=== PATIENT | male | born 1980 | race American Indian/Alaskan Native ===

== ENCOUNTER 2018-09-06 12:28 | Emergency (ER) | payer SELFPAY ==
--- NOTE | 2018-09-06 13:07 | Cat Scan Report ---
PROCEDURE: CT HEAD/BRAIN WO CON TECHNIQUE: CT examination of the head without IV contrast HISTORY: HX OF CVA 12 DAYS AGO, INCREASING NUMBNESS COMPARISONS: None FINDINGS: Slight scattered mucosal thickening ethmoid sinuses. Other included paranasal sinuses are clear as ar e the included mastoid air cells and middle ear cavities. No acute air-fluid level visualized in the included air-filled sinuses. Bone windows demonstrate no acute fracture. The brain is without mass, mass effect, hemorrhage, or acute infarct. There is no extra-axial intracranial bleed, brain bleed, or midline shift. The ventricles and sulci are age-appropriate. IMPRESSION: No acute CVA, intracranial bleed, or brain mass This document is electronically signed by Babar Hassan MD., September 06 2018 01:05:47 PM ET
[2018-09-06] MEDS ORDERED: SODIUM CHLORIDE FLUSH SYRINGE 10 ML INJ PRN (13:11)
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
[2018-09-06 13:24] LABS: Basophils % (Auto) 0.7 % (0.0-1.8); Eosinophils # (Auto) 0.1 K/mm3 (0.0-0.4); Eosinophils % (Auto) 2.3 % (0.0-4.3); Hemoglobin 14.5 gm/dl (11.8-15.2); Lymphocytes # (Auto) 2.9 K/mm3 (1.2-5.4); Lymphocytes % (Auto) 49.3 % (13.4-35.0); Mean Corpuscular HGB Conc 35 % (32-34); Mean Corpuscular Volume 89 fl (84-94); Monocytes # (Auto) 0.6 K/mm3 (0.0-0.8); Monocytes % (Auto) 9.4 % (0.0-7.3); Platelet Count 235 K/mm3 (140-440); Red Cell Distribution Width 12.9 % (13.2-15.2)
[2018-09-06 13:34] LABS: INR 0.95 (0.87-1.13)
[2018-09-06 13:35] LABS: Partial Thromboplastin Time 29.9 Sec. (24.2-36.6)
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
--- NOTE | 2018-09-06 14:01 | Cat Scan Report ---
PROCEDURE: CT CERVICAL SPINE WO CON TECHNIQUE: CT of the cervical spine performed. Axial images and coronal and sagittal reformatted july ges were obtained. HISTORY: cervical radiculopathy COMPARISON: None FINDINGS: There is no acute fracture identified. Vertebral body heights and alignment are maintained. At C5-6 there is mild narrowing of the intervertebral disc space. Mild posterior disc may cause minim al spinal stenosis. At C6-7 there is moderate narrowing of the disc space. There is prominent uncovertebral spurring bila terally causing moderate neural foraminal narrowing bilaterally. Posterior disc osteophyte complex ca uses mild spinal stenosis. At C7-T1 there is a narrowed intervertebral disc but grossly no spinal stenosis. IMPRESSION: Lower cervical degenerative disc disease. Most notable is C6-7 where uncovertebral spurr ing causes moderate bilateral neuroforaminal narrowing and posterior disc osteophyte complex causes m ild spinal stenosis. This document is electronically signed by Cleo Lagunas MD., September 06 2018 01:59:19 PM ET
[2018-09-06 14:05] LABS: BUN/Creatinine Ratio 12; Blood Urea Nitrogen 11 mg/dL (9-20); Calcium 9.3 mg/dL (8.4-10.2); Hemolysis Index 59
--- NOTE | 2018-09-06 17:26 | Magnetic Resonance Report ---
PROCEDURE: MRI brain without contrast. TECHNIQUE: Magnetic resonance imaging of the brain was performed without contrast material. HISTORY: Stroke. COMPARISONS: CT head 09/05/2018. FINDINGS: The ventricles are normal in size. There is a patent cavum septum pellucidum. There is normal signal intensity from the draper matter and white matter. There are no mass lesions. There is no intracranial hemorrhage. There are no signs of restricted diffusion. The mastoid air cells and paranasal sinuses a re grossly clear. IMPRESSION: Normal study. This document is electronically signed by Derik Perez MD., September 06 2018 05:24:32 PM ET
--- NOTE | 2018-09-06 17:30 | Magnetic Resonance Report ---
PROCEDURE: Magnetic resonance angiogram of the brain without contrast. TECHNIQUE: Axial 3-D [id number] MR angiography of the [place] of [place] and brain was performed. The source images were reconstructed in various views using maximum intensity projection. HISTORY: Cerebrovascular accident. COMPARISONS: None. FINDINGS: Both distal internal carotid arteries are patent. Both anterior cerebral arteries are patent. The ant erior communicating artery is probably patent. Both middle cerebral arteries are patent. Both posteri or communicating arteries are patent. Both distal vertebral arteries are patent. The posterior inferi or cerebellar arteries are not definitely visualized. The basilar artery is patent. Both anterior inf erior cerebellar arteries are large and may supply both the AICA and PICA territories. Both superior cerebellar and both posterior cerebral arteries are patent. There are no signs of aneurysm disease. T here is no evidence of a vasculitis. IMPRESSION: Normal study. This document is electronically signed by Derik Perez MD., September 06 2018 05:28:42 PM ET
--- NOTE | 2018-09-06 17:41 | Magnetic Resonance Report ---
PROCEDURE: Magnetic resonance angiogram of the neck without contrast. TECHNIQUE: Magnetic resonance imaging of the neck was performed using standard pulse sequences. HISTORY: Cerebrovascular accident. COMPARISONS: None. FINDINGS: Image quality is limited due to some motion artifact. Both common carotid arteries have adequate lume ns. Both common carotid artery bifurcations appear adequately patent. Both internal carotid and both external carotid arteries appear patent. Both vertebral arteries are patent. IMPRESSION: Limited study. No significant abnormality. This document is electronically signed by Derik Perez MD., September 06 2018 05:39:57 PM ET
[2018-09-06 17:56] VITALS: BP 138/83
== END 2018-09-06 18:10 | disposition admitted as inpatient to this hospital (09) ==
LOC: ED 12:28
DX: M54.12 Radiculopathy, cervical region (principal); F17.200 Nicotine dependence, unspecified, uncomplicated; Z86.73 Personal history of transient ischemic attack (TIA), and cerebral infarction without residual deficits
CPT/HCPCS: 36415; 70450; 70544; 70547; 70551; 72125; 80048; 82962; 84484; 85025; 85610; 85730; 93005; 93010